=== PATIENT | female | born 1950 | race Caucasian/White ===

== ENCOUNTER → 2019-07-19 | Day surgery (SDC) | payer OTHER ==
--- NOTE | 2019-07-20 11:46 | PATH ---
Surgical Pathology Report Patient Name: INEZ WILDER [facility]. Rec. #: [id number] /Age/Gender: 1950 (Age: 69) / F Account: [id number] Location: [facility] Taken: 07/19/2019 Received: 07/19/2019 Reported: 07/20/2019 Physicians: Jeanna River M.D. Specimen(s) Received A: RIGHT BREAST SPECIMEN - WITH CALCIFICATIONS B: RIGHT BREAST SPECIMEN - WITHOUT CALCIFICATIONS Clinical History Nonpalpable lesion Mammographic findings: Microcalcification, suspicious Final Diagnosis A. BREAST, RIGHT, WITH CALCIFICATIONS, STEREOTACTIC BIOPSY: BENIGN BREAST TISSUE SHOWING FIBROADENOMA WITH ASSOCIATED STROMAL CALCIFICATIONS. B. 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 Electronically Signed Darcy Beltran M.D. Gross Description A. Received in formalin labeled "right breast with calcifications," are 6 mayo-yellow, cylindrical portions of fibroadipose tissue ranging from 0.5-3.6 cm in length and averaging 0.2 cm in diameter. The specimens are submitted in toto in one cassette. B. Received in formalin labeled "right breast without calcifications," are 7 mayo-yellow, cylindrical portions of fibroadipose tissue ranging from 0.5-4.5 cm in length and averaging 0.3 cm in diameter. The specimens are submitted in toto in 2 cassettes. Time to formalin fixation: 5 minutes Total formalin fixation time: Approximately 6 hours. /07/19/2019 saudi07/19/2019
== END | disposition home or self-care (01) ==
LOC: FMAMMOTONE 09:51
PROVIDERS: ATTEND Surgery Surgical Oncology
PROC: 0HBT3ZX Excision of Right Breast, Percutaneous Approach, Diagnostic (ICD-10-PCS; principal; 2019-07-19)
DX: D24.1 Benign neoplasm of right breast (principal); N60.11 Diffuse cystic mastopathy of right breast; N60.31 Fibrosclerosis of right breast; N60.81 Other benign mammary dysplasias of right breast; N64.89 Other specified disorders of breast; R92.1 Mammographic calcification found on diagnostic imaging of breast
CPT/HCPCS: 19081; 87899; 88305-TC; A4648